=== PATIENT | female | born 1930 | race Caucasian/White ===

== ENCOUNTER → 2018-03-27 | Outpatient (CLI) | payer OTHER, MEDICARE | LOC: BMCIMAGING 09:49 | PROVIDERS: ATTEND Family Medicine | DX: M25.531 Pain in right wrist (principal); M50.31 Other cervical disc degeneration, high cervical region; M53.82 Other specified dorsopathies, cervical region; Z87.81 Personal history of (healed) traumatic fracture ==

== ENCOUNTER → 2018-04-22 | Outpatient (CLI) | payer OTHER, MEDICARE | LOC: BMCIMAGING 14:32 | PROVIDERS: ATTEND Physician Assistant | DX: K59.00 Constipation, unspecified (principal) ==